=== PATIENT | female | born 1955 | race Caucasian/White ===

== ENCOUNTER 2017-07-13 12:07 | Emergency (ER) | payer OTHER ==
[~2017-07-13] VITALS: Ht 170.2 cm; Wt 72.6 kg
[2017-07-13] MEDS ORDERED: ZESTRIL5 MG PO (12:39)
[2017-07-13] MEDS ORDERED: TRAZODONE HCL100 MG PO (12:39)
[2017-07-13] MEDS ORDERED: XANAX1 MG PO (12:39)
[2017-07-13] MEDS ORDERED: DOXYCYCLINE 10100 MG PO (13:21)
[2017-07-13] MEDS ORDERED: PROAIR HFA8.5 GM INH (13:21)
[2017-07-13] MEDS ORDERED: PREDNISONE 20 M20 MG PO (13:21)
[2017-07-13 13:57] VITALS: BP 134/75
== END 2017-07-13 14:26 | disposition home or self-care (01) ==
LOC: ER 12:07
DX: J18.9 Pneumonia, unspecified organism (principal); M54.5 Low back pain; M54.30 Sciatica, unspecified side; F17.210 Nicotine dependence, cigarettes, uncomplicated; G89.29 Other chronic pain

== ENCOUNTER 2020-02-16 15:00 | Inpatient (IN) | payer OTHER ==
[~2020-02-16] VITALS: Ht 170.2 cm; Wt 62.6 kg
[2020-02-16] VITALS (17 sets, daily range): BP systolic 95–136; BP diastolic 38–72
--- NOTE | ~2020-02-16 | EMS ---
[address] [address] EMS Patient Care Report Name: URSULA AGUILAR Room #: 245-P ADM IN .R.#: [id number] Admission: 02/16/20 Attend Phys: Zhanna Watts MD Discharge: Date of : 55 Report #: [id number] THIS REPORT FOR: //name// Report Transmitted: 02/17/2020 06:31 EMS Care Summary [facility] Incident [id number] @ 02/16/2020 14:06 Incident Location [address] [place] [address] Patient URSULA PERES Female, 64 Years 1955 Patient Address [address] [place] [address] Patient History Hypertension (HTN),Hepatitis C (Without Hepatic Coma), Patient Allergies No known allergies, Patient Medications Alprazolam, Citalopram, Amlodipine, Cyclobenzaprine, Chief Complaint abdominal pain and hemaemesis Disposition Transported No Lights/[facility] Dispatch Reason Hemorrhage/Laceration Transported To [facility] Narrative S[facility] and [facility] responded to call for a hemorrhage. [facility] and [facility] arrived on scene after a wrong address from the initial call. Company made pt contact. Pt was [address] [address] EMS Patient Care Report Name: URSULA AGUILAR Room #: 245-P ADM IN [facility]#: [id number] Admission: 02/16/20 Attend Phys: Zhanna Watts MD Discharge: Date of : 55 Report #: [id number] laying in bed A&Ox4 and GCS15. Pt has been feeling ill for the past 4 days and pt has been vomiting black coffee ground like emesis for the last two days. Pt was attached to the monitor and vital signs assessed. Surgical mask was placed upon contact with the patient. Vital signs were all stable and pt agreed to be transported to the hospital. Pt was moved to stair chair and then placed on the cot. Pt was secured with seat belts and loaded into the ambulance. Pt was reattached to the monitor and 3 lead showed sinus tachycardia with no other abnormalities. IV access was established in the L. AC with 18g and flushed with 10mL of NS. Pt is also complaining of lower right quadrant abdominal pain that is 7/10 on pain scale that increases with palpation. Pt was monitored and reassessed during transport to [facility]. Pt care was transferred to [facility] at a hallway bed with signature. Initial Vitals @14:25P: 114,R: 20,BP: 121/62,Pain: 7/10,GCS: 15,Temp: 98F,Glucose: 240,CO: 2,SpO2: 97,Revised Trauma: 12, @14:36P: 114,R: 20,BP: 140/67,Pain: 7/10,GCS: 15,CO: 2,SpO2: 98,Revised Trauma: 12, @14:35P: 113,CO: 2,SpO2: 99,NH Suspected: false Assessments @14:27MENTAL:Person Oriented,Time Oriented,Event Oriented,Place Oriented,SKIN:HEENT:Head/Face: No Abnormalities,Eyes: No Abnormalities,LUNG SOUNDS:General: Other,General: Vomiting,Left Upper: No Abnormalities,Right Upper: No Abnormalities,Left Lower: No Abnormalities,Right Lower: No Abnormalities,ABDOMEN:General: Other,General: Vomiting,Left Upper: No Abnormalities,Right Upper: No Abnormalities,Left Lower: No Abnormalities,Right Lower: No Abnormalities,PELVIS//GI:No Abnormalities,EXTREMITIES:Left Arm: No Abnormalities,Right Arm: No Abnormalities,Left Leg: No Abnormalities,Right Leg: No Abnormalities,PULSE:Radial: 2+ Normal,NEURO:No Abnormalities,@14:40MENTAL:Place Oriented,Time Oriented,Event Oriented,Person Oriented,SKIN:HEENT:Head/Face: No Abnormalities,Eyes: No Abnormalities,Neck/Airway: No Abnormalities,LUNG SOUNDS:General: Vomiting,General: Other,Right Lower: Tenderness,Left Upper: No Abnormalities,Right Upper: No Abnormalities,Left Lower: No Abnormalities,ABDOMEN:General: Vomiting,General: Other,Right Lower: Tenderness,Left Upper: No Abnormalities,Right Upper: No Abnormalities,Left Lower: No Abnormalities,PELVIS//GI:No Abnormalities,EXTREMITIES:Left Arm: No Abnormalities,Right Arm: No Abnormalities,Left Leg: No Abnormalities,Right Leg: No Abnormalities,PULSE:NEURO:No Abnormalities, Impression Abdominal Pain Procedures @14:26ALS AssessmentResponse: UnchangedSucceeded@14:47Normal Saline (.9% NaCl) [address] [address] EMS Patient Care Report Name: URSULA AGUILAR Room #: 245-P [facility] IN M.R.#: [id number] Admission: 02/16/20 Attend Phys: Zhanna Watts MD Discharge: Date of : 55 Report #: [id number] - Cold 10cc (18 ga) Site: Antecubital-LeftResponse: UnchangedSucceeded Timeline 14:04,Call Received 14:04,Psap Call 14:06,Dispatched 14:08,En Route 14:10,Initial Responder On Scene 14:10,On Scene 14:13,At Patient 14:25,BP: 121/62 M,PULSE: 114,RR: 20 R,SPO2: 97 Ox,ETCO2: ,B,PAIN: 7,GCS: 15, 14:26,ALS Assessment,Response: UnchangedSucceeded, 14:35,BP: / M,PULSE: 113,RR: R,SPO2: 99 Ox,ETCO2: ,BG: ,PAIN: ,GCS: , 14:36,BP: 140/67 M,PULSE: 114,RR: 20 R,SPO2: 98 Ox,ETCO2: ,BG: ,PAIN: 7,GCS: 15, 14:37,Depart Scene 14:47,Normal Saline (.9% NaCl) - Cold 10cc 18 ga Site: Antecubital-Left,Response: UnchangedSucceeded, 14:54,At Destination 14:58,Transfer Patient 15:22,Call Closed Disclaimer v1.1 Copyright 2020 [employer] This EMS Care Summary contains data elements from the applicable legal record (which may be displayed differently). It is designed to provide pertinent information for the following purposes: continuity of care, clinical quality, and state data reporting. The complete legal record is available to ED staff and administrators of the receiving hospital in [employer] Patient Tracker. All data is provided "as is."
[~2020-02-16 15:00] MED LIST: DOXYCYCLINE 10100 MG PO; PREDNISONE 20 M20 MG PO; PROAIR HFA8.5 GM INH; TRAZODONE HCL100 MG PO; XANAX1 MG PO; ZESTRIL5 MG PO
[2020-02-16] MEDS ORDERED: CELEXA 20 MG TA20 MG PO (15:03)
[2020-02-16] MEDS ORDERED: AMLODIPINE BESY10 MG PO (15:03)
[2020-02-16] MEDS ORDERED: CYCLOBENZAPRINE10 MG PO (15:04)
[2020-02-16 15:23] LABS: LYMPHOCYTES 18.6 % (24.0-44.0); MONOCYTES 4.2 % (1.0-8.0); POLYS 76.6 % (36.0-66.0); RBC 1.67 mil/uL (4.20-5.00)
[2020-02-16 15:24] LABS: ABSOLUTE NEUTROPHILS 12.8 thou/uL (1.4-8.2); BASOPHILS 0.3 % (0.0-2.0); EOSINOPHILS 0.3 % (0.0-3.0); MCH 30.4 pg (26.0-34.0); MCHC 32.9 g/dL (28.0-37.0); MCV 92.6 fL (80.0-100.0); PLATELET COUNT 202 thou/uL (150-400); RDW 15.2 % (10.5-14.5); WBC 16.7 thou/uL (4.0-11.0)
[2020-02-16 15:27] LABS: HEMATOCRIT 15.4 % (37.0-47.0); HEMOGLOBIN 5.1 gm/dL (12.0-15.0)
[2020-02-16 15:35] LABS: CALCIUM 8.2 mg/dL (8.5-10.1); CREATININE 0.8 mg/dL (0.6-1.0); POTASSIUM 3.9 mmol/L (3.5-5.1)
[2020-02-16 15:38] LABS: APTT 23.5 Seconds (24.5-32.8); INR 1.2; PROTIME 12.7 Seconds (9.3-11.4)
[2020-02-16 15:40] LABS: ALBUMIN 2.6 g/dL (3.4-5.0); DIRECT BILIRUBIN 0.2 mg/dL (<0.1-0.2); TOTAL BILIRUBIN 0.5 mg/dL (0.2-1.0); TOTAL PROTEIN 7.3 g/dL (6.4-8.2)
--- NOTE | 2020-02-16 22:30 | NUR ---
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 98% ON ROOM AIR. 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 IVPB OCTREOTIDE AND PROTONIX STARTED. FIRST UNIT OF BLOOD STARTED, PATIENT EDUCATED ON REACTION PRECAUTIONS. FALL PRECAUTIONS ALSO DISCUSSED. SPOKE WITH SON (BE BERGER) WHO LIVES IN [place] AND GAVE AN UPDATE. ALSO SPOKE WITH DESIGNATED VISITOR SISTER WHO LIVES IN [place], NATALIE MACK) AND GAVE UPTATE. BOTH FAMILY MEMBERS WERE GIVEN THE PRIVACY CODE NUMBER PER PATIENT'S REQUEST. PATIENT SPOKE WITH BOTH FAMILY MEMBERS ON THE PHONE. NO SIGN OF ACUTE DISTRESS NOTED AT THIS TIME. WILL CONTINUE TO MONITOR.
[2020-02-17] VITALS (21 sets, daily range): BP systolic 95–141; BP diastolic 38–64
[2020-02-17 01:49] LABS: HEMATOCRIT 16.8 % (37.0-47.0); HEMOGLOBIN 5.6 gm/dL (12.0-15.0)
--- NOTE | 2020-02-17 06:40 | NUR ---
AFTER 1 UNIT OF BLOOD HGB INCREASED FROM 5.1 TO 5.6, NURSE PRACTITIONER NOTIFIED. 2 ADDITIONAL UNITS ORDERED, 3RD UNIT OF BLOOD INFUSING AT 0545. THERE IS NO NOTED NAUSEA/VOMITING OR BOWEL MOVEMENT. IV OCTREOTIDE AND PROTONIX INFUSING. PATIENT STATING OVERALL WELNESS FEELING BETTER. NO SIGN OF ACUTE DISTRESS NOTED AT THIS TIME. WILL CONTINUE TO MONITOR.
[2020-02-17 08:53] LABS: HEMATOCRIT 26.2 % (37.0-47.0)
[2020-02-17 10:23] LABS: % SATURATION 53 % (20-39); IRON 154 ug/dL (50-170); TIBC 291 ug/dL (250-450)
--- NOTE | 2020-02-17 10:44 | NUR ---
0700-assumed care of pt.--vw 075-blood #3 in.juvenal w/o problems.--vw 0820- in.--vw 1020-dr. ovalle in.--vw 1030-consent for egd obtained.--vw 1045- & g.i. lab here for egd. pt placed in enhanced precautions earlier. waiting on swab from lab to obtain & send.--vw
[2020-02-17 21:25] LABS: HEMATOCRIT 25.6 % (37.0-47.0); HEMOGLOBIN 8.6 gm/dL (12.0-15.0)
[2020-02-18] VITALS (9 sets, daily range): BP systolic 132–157; BP diastolic 59–69
[2020-02-18 06:00] LABS: HEMATOCRIT 27.5 % (37.0-47.0); HEMOGLOBIN 9.1 gm/dL (12.0-15.0); MCH 29.3 pg (26.0-34.0); MCHC 33.2 g/dL (28.0-37.0); MCV 88.1 fL (80.0-100.0); RBC 3.12 mil/uL (4.20-5.00); RDW 17.4 % (10.5-14.5); WBC 6.3 thou/uL (4.0-11.0)
[2020-02-18 06:26] LABS: ALBUMIN 2.6 g/dL (3.4-5.0); CALCIUM 7.7 mg/dL (8.5-10.1); CREATININE 0.6 mg/dL (0.6-1.0); TOTAL BILIRUBIN 1.3 mg/dL (0.2-1.0); TOTAL PROTEIN 7.4 g/dL (6.4-8.2)
[2020-02-18 06:45] LABS: POTASSIUM 2.9 mmol/L (3.5-5.1)
--- NOTE | 2020-02-18 08:19 | NUR ---
RN assumed care at 0700. PT was appeared asleep in bed. PT was frustrated that RN woke her up for an assessment stating, "I've only slept 15 minutes. I can't sleep in this place. I want to go home!" RN apologized for waking the PT, educated her on the importance of monitoring vital signs and performing assessments. PT verbalized understanding and expressed her wishes to "get out of here." RN told PT that we can discuss discharge planning with the attending today. Call light is within reach. High fall precautions maintained. RN will continue to monitor.
--- NOTE | 2020-02-18 08:20 | P ---
[facility] [place] [address] PROCEDURE REPORT Name: URSULA AGUILAR Room #: 245-P ADM IN M.R.#: [id number] Admission: 02/16/20 Attend Phys: Zhanna Watts MD Discharge: Date of : 55 Report #: [id number] THIS REPORT FOR: cc: Arjun Bowen,Wenceslao Elizondo MD ~ CC: Zhanna Willams INDICATIONS: She is a 64-year-old female who presented with history of HCV, probable cirrhosis, presents with coffee-ground emesis and melena. She was admitted to the ICU with significant anemia down to 5.1. CT showed a cirrhosis and possible HCC in the left lobe of the liver measuring up to near 7 cm. This is an upper endoscopy report. DESCRIPTION OF PROCEDURE: The patient was intubated prior to the procedure by Anesthesia. Monitored anesthesia care was utilized. The patient was placed in left lateral decubitus position. The upper adult endoscope was then advanced through the mouth into the esophagus and all the way to the second portion of the duodenum, then withdrawn carefully with careful inspection. The duodenum was normal. The stomach and the body showed mild portal hypertensive gastropathy. There were no gastric varices in the fundus. There was a small hiatal hernia in the fundus. In the distal third of the esophagus, there were 3 columns of small nonbleeding esophageal varices and of note, there was no blood throughout the entire upper GI tract. The procedure was then ended without any complications. The patient was recovered per established procedures and protocols. RECOMMENDATIONS: To continue the octreotide and pantoprazole infusions and repeat H and H every q. 12 hours. Transfuse as needed. Avoid NSAIDs and the patient will likely need a colonoscopy and quad phase CTs to further characterize this probable hepatocellular carcinoma. We will follow along with you. <ELECTRONICALLY SIGNED> By: Wenceslao Ravi MD 02/18/20 0820 1122 1330 Wenceslao Ravi MD /nt
[2020-02-18 09:57] LABS: HEMATOCRIT 28.3 % (37.0-47.0); HEMOGLOBIN 9.6 gm/dL (12.0-15.0)
[2020-02-18] MEDS ORDERED: PROPRANOLOL 20M20 M1 PO (12:55)
[2020-02-18] MEDS ORDERED: LACTULOSE20 GM/30 M PO (12:55)
[2020-02-18] MEDS ORDERED: PROTONIX40 M1 PO (12:55)
[2020-02-18 13:08] LABS: CERULOPLASMIN 37.9 mg/dL (19.0-39.0)
--- NOTE | 2020-02-18 14:14 | NUR ---
Pt dcing home today with plans for outpt f/u pcp and GI. No cm interventions indicated. Pt was up ad suzanan and has a pcp and insurance in place for f/u. Case not openned.
--- NOTE | 2020-02-18 14:15 | NUR ---
Discharge education discussed with PT at bedside. She verbalized understanding. Education handouts given to PT. PT left unit with all personal belongings. Her sister was transport. PT left unit at 1410 via wheelchair with RN and left with her sister in her personal vehicle.
[2020-02-18 20:06] LABS: IgG 2401 mg/dL (586-1602)
[2020-02-19 08:08] LABS: HAV IgM AB (ANTI-HAV IgM) Negative (Negative); HEPATITIS B SURFACE AG Negative (Negative); HEPATITIS C VIRUS AB >11.0 (0.0-0.9)
[2020-02-19 15:07] LABS: ANA INTERPRETATION Negative (Negative)
[2020-02-20 13:08] LABS: MITOCHONDRIAL ANTIBODY <20.0 Units (0.0-20.0); SMOOTH MUSCLE ANTIBODY 65 Units (0-19)
== END 2020-02-18 14:15 | disposition home or self-care (01) | DRG 377 ==
LOC: ER 15:00 → ICU 18:20 → EROBS 18:20 → ICU 19:12
PROVIDERS: Emergency Medicine; Internal Medicine Gastroenterology; Nurse Practitioner; Nurse Practitioner Family; ADMIT Hospitalist; ATTEND Hospitalist
PROC: 30233N1 Transfusion of Nonautologous Red Blood Cells into Peripheral Vein, Percutaneous Approach (ICD-10-PCS; principal; 2020-02-16)
PROC: 0DJ08ZZ Inspection of Upper Intestinal Tract, Via Natural or Artificial Opening Endoscopic (ICD-10-PCS; 2020-02-17)
DX: K92.2 Gastrointestinal hemorrhage, unspecified (principal); E43 Unspecified severe protein-calorie malnutrition; K76.6 Portal hypertension; D62 Acute posthemorrhagic anemia; E87.2 Acidosis; E72.20 Disorder of urea cycle metabolism, unspecified; I85.00 Esophageal varices without bleeding; Z20.828 Contact with and (suspected) exposure to other viral communicable diseases; G89.29 Other chronic pain; M54.5 Low back pain; I10 Essential (primary) hypertension; K74.60 Unspecified cirrhosis of liver; F17.210 Nicotine dependence, cigarettes, uncomplicated; F41.9 Anxiety disorder, unspecified; R16.0 Hepatomegaly, not elsewhere classified; K72.90 Hepatic failure, unspecified without coma; F32.9 Major depressive disorder, single episode, unspecified; K44.9 Diaphragmatic hernia without obstruction or gangrene; K31.89 Other diseases of stomach and duodenum; Z80.1 Family history of malignant neoplasm of trachea, bronchus and lung; Z68.21 Body mass index [BMI] 21.0-21.9, adult; Z90.710 Acquired absence of both cervix and uterus; Z79.899 Other long term (current) drug therapy; Z86.19 Personal history of other infectious and parasitic diseases
CPT/HCPCS: 10078; 62110; 62900